=== PATIENT | female | born 1955 | race Hispanic/Latino ===

== ENCOUNTER 2017-07-13 00:43 | Emergency (ER) | payer OTHER, MEDICAID ==
[2017-07-13 00:44] VITALS: BMI 41.1
[2017-07-13 01:12] VITALS: BP 189/89; PULSE 93; RESP 18; TEMP 98.1; O2SAT 98
[2017-07-13] MEDS ORDERED: Ofloxacin Ophth 0.3% Soln OU STA (01:56)
--- NOTE | 2017-07-13 01:59 | ED PDOC ---
HPI: General Adult Time Seen by Provider: 07/13/17 01:16 Chief Complaint (Nursing): Eye Problem History Per: Patient Additional Complaint(s): Pt. states for the past several hours she's developed b/l eye redness with crusting and discharge R>L. Denies trauma, fever, pain contrary to triage note. Past Medical History Reviewed: Historical Data, Nursing Documentation, Vital Signs Vital Signs: Last Vital Signs Temp 98.1 F 07/13/17 01:07 Pulse 93 H 07/13/17 01:07 Resp 18 07/13/17 01:07 BP 189/89 H 07/13/17 01:07 Pulse Ox 98 07/13/17 01:07 - Medical History PMH: Diabetes, HTN - Surgical History Surgical History: Appendectomy - Family History Family History: States: No Known Family Hx - Home Medications Home Medications: Ambulatory Orders Medication Instructions Recorded GlipiZIDE 5 mg PO DAILY 09/26/14 Loratadine 10 mg PO DAILY 09/26/14 Metformin Hydrochloride [Metformin] 750 mg PO BID 09/26/14 Famotidine [Pepcid] 20 mg PO HS #20 tab 05/30/15 Ibuprofen [Motrin] 600 mg PO Q6H #20 tab 05/30/15 Naproxen [Naprosyn] 500 mg PO Q12H #20 tab 04/26/17 traMADol [Ultram] 50 mg PO Q8 #10 tab 04/26/17 oxyCODONE/Acetaminophen [Percocet 1 ea PO Q6 PRN #6 tab 04/28/17 5/325 mg Tab] - Allergies Allergies/Adverse Reactions: Allergies Allergy/AdvReac Type Severity Reaction Status Date / Time peanut Allergy RASH Verified 07/13/17 01:12 Review of Systems ROS Statement: Except As Marked, All Systems Reviewed And Found Negative Eyes: Positive for: Conjunctivae Inflammation, Redness Physical Exam - Physical Exam Appears: Positive for: Well, Non-toxic, No Acute Distress Skin: Positive for: Normal Color, Warm. Negative for: Rash Eye Exam: Positive for: EOMI, PERRL, Conjunctival injection (b/l ). Negative for: Periorbital swelling, Periorbital tenderness - ECG O2 Sat by Pulse Oximetry: 98 - Progress ED Course And Treament: Ofloxacin eye drops given in ED. Disposition - Clinical Impression Clinical Impression: Conjunctivitis - Patient ED Disposition Is Patient to be Admitted: No - Disposition Disposition: Routine/Home Disposition Time: 02:02 Condition: STABLE Additional Instructions: Apply 2 drops to each eye q4h for 7 days. Follow up with your PMD in 2 days for further evaluation. Instructions: Conjunctivitis (ED)
== END 2017-07-13 02:24 | disposition home or self-care (01) ==
LOC: H.ER 00:43
DX: H10.9 Unspecified conjunctivitis (principal); E11.9 Type 2 diabetes mellitus without complications; Z79.84 Long term (current) use of oral hypoglycemic drugs; I10 Essential (primary) hypertension